=== PATIENT | male | born 1945 | race Caucasian/White ===

== ENCOUNTER 2022-05-31 10:18 | Inpatient (IN) ==
[~2022-05-31 10:18] MED LIST: Acetaminophen IV 1,000 MG/100 ML BAG IVPB ONE; Famotidine 20 MG/2 ML VIAL IVP ONE; Povidone-Iodine 45 ML, Sodium Chloride IRRigation 1,000 ML IR ONE
[2022-05-31] MEDS ORDERED: Lidocaine HCL 4 ML Topical Solution (Laryng-O-Jet Kit Sterile Pak) TP ONE (10:29)
[2022-05-31] MEDS ORDERED: *HR* Rocuronium Bromide 50 MG/5 ML VIAL ONE (10:29)
[2022-05-31] MEDS ORDERED: Lidocaine -MPF 2% 5 ML VIAL ONE (10:29)
[2022-05-31] MEDS ORDERED: Ondansetron 4 MG/2 ML VIAL ONE (10:29)
[2022-05-31] MEDS ORDERED: *HR* Propofol 200 MG/20 ML VIAL IVP ONE ×2 (10:29→11:56)
[2022-05-31] MEDS ORDERED: CeFAZolin Syr 2,000MG/20 ML 2,000 MG/20 ML SYRINGE IVPB ONE (11:05)
[2022-05-31] MEDS ORDERED: Insulin Human Regular 10 UNIT in 0.9 % Sodium Chloride 10 ML IV ONE ×2 (11:06→20:24)
[2022-05-31] MEDS ORDERED: Ringers Solution, Lactated 1,000 ML IVC SCH (11:15)
[2022-05-31] MEDS ORDERED: *HR* FentaNYL (PF) 100 MCG/2 ML VIAL ONE (11:35)
[2022-05-31] MEDS ORDERED: Ropivacaine/PF 0.5% 30 ML VIAL ONE (11:36)
[2022-05-31] MEDS ORDERED: Vancomycin 1,000 MG VIAL ONE ×2 (11:58→14:01)
[2022-05-31] MEDS ORDERED: Tranexamic Acid 1,000 MG/10 ML VIAL ONE (12:51)
[2022-05-31] MEDS ORDERED: EPHEDrine 50 MG/ML VIAL ONE (13:24)
[2022-05-31] MEDS ORDERED: Sugammadex Sodium 200 MG/2 ML VIAL IV ONE (14:11)
[2022-05-31] MEDS ORDERED: Sennosides 8.6 MG TABLET PO PRN (14:13)
[2022-05-31] MEDS ORDERED: MOM Conc 10 ML UD.LIQ PO PRN (14:13)
[2022-05-31] MEDS ORDERED: Ondansetron 4 MG/2 ML VIAL IVP PRN (14:13)
[2022-05-31] MEDS: *HR* FentaNYL (PF) 100 MCG/2 ML VIAL IVP PRN ×4 (15:10→15:25)
[2022-05-31] MEDS: *HR* OxyCODONE Immed Rel 5 MG TABLET PO PRN (15:42)
[2022-05-31] MEDS ORDERED: Vancomycin 1,500 MG/265 ML IV.SOLN IVPB ONE (19:00)
[2022-05-31] MEDS ORDERED: CeFAZolin 2 GM/120 ML BAG IVPB SCH (22:00)
[2022-05-31] MEDS: Ketorolac 30 MG/ML VIAL IVP SCH (22:08)
[2022-05-31] MEDS: Acetaminophen 325 MG TABLET PO SCH (23:08)
[2022-05-31 23:28] LABS: Basophils % 0.1 %; Hematocrit 38.2 % (37.5-50.1); Hemoglobin 12.6 g/dL (12.9-16.9); Immature Granulocytes % 0.7 % (0-4); Lymphocytes # 0.7 K/mcL (0.6-4.6); Mean Corpuscular Hemoglobin 31.7 pg (28.0-33.3); Mean Platelet Volume 10.4 fL (9.4-12.4); Monocytes # 0.4 K/mcL (0.0-1.3); Monocytes % 3.9 %; Neutrophils # 8.6 K/mcL (1.6-8.9); Platelet Count 298 K/mcL (140-400); Red Blood Count 3.98 M/mcL (4.19-5.50); Red Cell Distribution Width 13.4 % (11.5-14.5); Segmented Neutrophils % 88.3 %; White Blood Count 9.7 K/mcL (4.3-11.1)
[2022-05-31 23:33] LABS: VBG HCO3 22 mEq/L (21-27); VBG PCO2 38 mmHg (41-51); VBG PH 7.37 pH Units (7.32-7.42); VBG PO2 113 mmHg (25-50)
[2022-05-31 23:58] LABS: Albumin 3.6 g/dL (3.5-5.7); Albumin/Globulin Ratio 0.9 (1.1-2.2); Bilirubin,Total 0.5 mg/dL (0.3-1.0); Calcium 9.2 mg/dL (8.6-10.3); Globulin 4.1 g/dL (2.4-3.5); Potassium 4.6 mEq/L (3.5-5.1); Total Protein 7.7 g/dL (6.4-8.9)
[2022-06-01] MEDS ORDERED: *HR* Dextrose 50 % in Water (Syg) 50 ML SYRINGE IVP PRN (00:18)
[2022-06-01] MEDS ORDERED: D5% in Water 1,000 ML IVC PRN (00:18)
[2022-06-01] MEDS ORDERED: Dextrose Gel 15 GM/37.5 ML TUBE PO PRN ×2 (00:18)
[2022-06-01] MEDS ORDERED: Vancomycin 1,500 MG/265 ML IV.SOLN IVPB ONE (01:00)
[2022-06-01] MEDS: CeFAZolin 2 GM/120 ML BAG IVPB SCH ×2 (01:00→10:44)
[2022-06-01] MEDS: Ringers Solution, Lactated 1,000 ML IVC SCH ×3 (01:10→16:22)
[2022-06-01] MEDS: Insulin LISPRO 300 UNITS/3 ML VIAL SUBQ SCH ×12 (01:46→23:10)
[2022-06-01] MEDS ORDERED: Pantoprazole 40 MG VIAL IVP ONE (01:55)
[2022-06-01] MEDS: Insulin DETEMIR 100 UNIT/ML X5UNITS SUBQ SCH ×2 (03:07→21:23)
[2022-06-01] MEDS: *HR* OxyCODONE Immed Rel 5 MG TABLET PO PRN ×3 (04:30→21:03)
[2022-06-01] MEDS: Acetaminophen 325 MG TABLET PO SCH ×4 (04:35→18:33)
[2022-06-01] MEDS: Ketorolac 30 MG/ML VIAL IVP SCH ×4 (07:43→18:33)
[2022-06-01] MEDS: Aspirin Enteric Coated 81 MG Tablet PO SCH (10:43)
[2022-06-01] MEDS: *HR* Rivaroxaban 10 MG TABLET PO SCH (10:43)
[2022-06-01] MEDS: Gabapentin 100 MG CAPSULE PO SCH ×3 (10:43→21:03)
[2022-06-01 12:35] LABS: BUN/Creatinine Ratio 25 (6-26); Blood Urea Nitrogen 20 mg/dL (8-23); Calcium 8.4 mg/dL (8.6-10.3); Carbon Dioxide 23 mEq/L (23-29); Chloride 98 mEq/L (98-107); Glucose 330 mg/dL (70-105); Osmolality,Calculated 289 (280-300); Potassium 4.2 mEq/L (3.5-5.1); Sodium 132 mEq/L (136-145)
[2022-06-01] MEDS: cefTRIAXone 2,000 MG in 0.9 % Sodium Chloride Mini Bag 100 ML IVPB SCH (12:56)
[2022-06-01] MEDS ORDERED: Insulin LISPRO 300 UNITS/3 ML VIAL SUBQ ONE (16:02)
[2022-06-02] MEDS: Ketorolac 30 MG/ML VIAL IVP SCH ×4 (01:22→17:03)
[2022-06-02] MEDS: Acetaminophen 325 MG TABLET PO SCH ×4 (01:23→17:02)
[2022-06-02] MEDS: Insulin LISPRO 300 UNITS/3 ML VIAL SUBQ SCH ×7 (01:29→22:45)
[2022-06-02] MEDS: 0.9 % Sodium Chloride 1,000 ML IVC SCH (06:19)
[2022-06-02] MEDS: Gabapentin 100 MG CAPSULE PO SCH ×3 (08:38→22:58)
[2022-06-02] MEDS: *HR* OxyCODONE Immed Rel 5 MG TABLET PO PRN ×2 (08:38→17:02)
[2022-06-02] MEDS: Aspirin Enteric Coated 81 MG Tablet PO SCH (08:38)
[2022-06-02] MEDS: *HR* Rivaroxaban 10 MG TABLET PO SCH (08:38)
[2022-06-02] MEDS: cefTRIAXone 2,000 MG in 0.9 % Sodium Chloride Mini Bag 100 ML IVPB SCH (08:40)
[2022-06-02 09:53] LABS: Basophils % 0.5 %; Eosinophils # 0.1 K/mcL (0.0-0.6); Eosinophils % 2.1 %; Hematocrit 31.5 % (37.5-50.1); Hemoglobin 10.4 g/dL (12.9-16.9); Immature Granulocytes % 0.6 % (0-4); Lymphocytes # 2.4 K/mcL (0.6-4.6); Lymphocytes % 36.2 %; Mean Corpuscular Hemoglobin 31.5 pg (28.0-33.3); Mean Corpuscular Volume 95.5 fL (83.0-100.0); Mean Platelet Volume 10.5 fL (9.4-12.4); Monocytes # 0.6 K/mcL (0.0-1.3); Monocytes % 9.2 %; Neutrophils # 3.4 K/mcL (1.6-8.9); Platelet Count 273 K/mcL (140-400); Red Cell Distribution Width 13.4 % (11.5-14.5); Segmented Neutrophils % 51.4 %; White Blood Count 6.6 K/mcL (4.3-11.1)
[2022-06-02 10:11] LABS: Calcium 8.8 mg/dL (8.6-10.3); Potassium 3.6 mEq/L (3.5-5.1)
[2022-06-02] MEDS ORDERED: Vancomycin 1,500 MG/265 ML IV.SOLN IVPB SCH (16:00)
[2022-06-02] MEDS: Metoprolol XL (24 HR) Succ 50 MG TAB.ER.24H PO SCH (17:02)
[2022-06-02] MEDS ORDERED: Insulin DETEMIR 100 UNIT/ML X5UNITS SUBQ SCH (21:00)
[2022-06-02] MEDS: Vancomycin 1,500 MG/265 ML IV.SOLN IVPB SCH (22:43)
[2022-06-02] MEDS: Cholecalciferol (D-3) 1,000 UNIT (25MCG) TABLET PO SCH (22:58)
[2022-06-03] MEDS: Ketorolac 30 MG/ML VIAL IVP SCH ×5 (00:03→23:18)
[2022-06-03] MEDS: Acetaminophen 325 MG TABLET PO SCH ×5 (00:03→23:19)
[2022-06-03] MEDS ORDERED: Famotidine 20 MG TABLET PO ONE (01:14)
[2022-06-03] MEDS: Vancomycin 1,500 MG/265 ML IV.SOLN IVPB SCH (06:27)
[2022-06-03 07:00] LABS: Basophils % 0.5 %; Eosinophils # 0.2 K/mcL (0.0-0.6); Eosinophils % 3.8 %; Hematocrit 28.7 % (37.5-50.1); Hemoglobin 9.2 g/dL (12.9-16.9); Immature Granulocytes % 0.5 % (0-4); Lymphocytes # 1.7 K/mcL (0.6-4.6); Lymphocytes % 39.4 %; Mean Corpuscular HGB Conc 32.1 g/dL (31.6-35.5); Mean Corpuscular Hemoglobin 31.3 pg (28.0-33.3); Mean Corpuscular Volume 97.6 fL (83.0-100.0); Mean Platelet Volume 10.7 fL (9.4-12.4); Monocytes # 0.4 K/mcL (0.0-1.3); Monocytes % 9.7 %; Platelet Count 260 K/mcL (140-400); Red Blood Count 2.94 M/mcL (4.19-5.50); Red Cell Distribution Width 13.5 % (11.5-14.5); Segmented Neutrophils % 46.1 %; White Blood Count 4.4 K/mcL (4.3-11.1)
[2022-06-03 07:54] LABS: Calcium 8.4 mg/dL (8.6-10.3); Potassium 3.8 mEq/L (3.5-5.1)
[2022-06-03] MEDS: cefTRIAXone 2,000 MG in 0.9 % Sodium Chloride Mini Bag 100 ML IVPB SCH (08:21)
[2022-06-03] MEDS: Insulin LISPRO 300 UNITS/3 ML VIAL SUBQ SCH ×3 (08:21→17:27)
[2022-06-03] MEDS: *HR* Rivaroxaban 10 MG TABLET PO SCH (08:23)
[2022-06-03] MEDS: Aspirin Enteric Coated 81 MG Tablet PO SCH (08:24)
[2022-06-03] MEDS: Cholecalciferol (D-3) 1,000 UNIT (25MCG) TABLET PO SCH ×2 (08:24→20:12)
[2022-06-03] MEDS: Finasteride 5 MG TABLET PO SCH (08:24)
[2022-06-03] MEDS: Gabapentin 100 MG CAPSULE PO SCH ×3 (08:24→20:12)
[2022-06-03] MEDS: Fenofibrate 54 MG TABLET PO SCH (08:25)
[2022-06-03] MEDS: DilTIAZem CD (24hr) 240 MG CAP.ER.24H PO SCH (08:31)
[2022-06-03] MEDS: Metoprolol XL (24 HR) Succ 50 MG TAB.ER.24H PO SCH (08:31)
[2022-06-03] MEDS: Ringers Solution, Lactated 1,000 ML IVC SCH (08:35)
[2022-06-03] MEDS: Insulin DETEMIR 100 UNIT/ML X5UNITS SUBQ SCH ×2 (11:05→21:41)
[2022-06-03] MEDS: 0.9 % Sodium Chloride 1,000 ML IVC SCH (23:20)
[2022-06-04] MEDS ORDERED: Vancomycin 1,500 MG/265 ML IV.SOLN IVPB SCH (06:00)
[2022-06-04] MEDS: Ketorolac 30 MG/ML VIAL IVP SCH ×3 (06:00→16:49)
[2022-06-04] MEDS: Acetaminophen 325 MG TABLET PO SCH ×3 (06:00→16:49)
[2022-06-04] MEDS: *HR* Rivaroxaban 10 MG TABLET PO SCH (08:52)
[2022-06-04] MEDS: Metoprolol XL (24 HR) Succ 50 MG TAB.ER.24H PO SCH (08:52)
[2022-06-04] MEDS: cefTRIAXone 2,000 MG in 0.9 % Sodium Chloride Mini Bag 100 ML IVPB SCH (08:52)
[2022-06-04] MEDS: DilTIAZem CD (24hr) 240 MG CAP.ER.24H PO SCH (08:52)
[2022-06-04] MEDS: Fenofibrate 54 MG TABLET PO SCH (08:52)
[2022-06-04] MEDS: Finasteride 5 MG TABLET PO SCH (08:52)
[2022-06-04] MEDS: Gabapentin 100 MG CAPSULE PO SCH ×3 (08:52→22:03)
[2022-06-04] MEDS: Aspirin Enteric Coated 81 MG Tablet PO SCH (08:52)
[2022-06-04] MEDS: Cholecalciferol (D-3) 1,000 UNIT (25MCG) TABLET PO SCH ×2 (08:52→22:03)
[2022-06-04] MEDS: Insulin LISPRO 300 UNITS/3 ML VIAL SUBQ SCH ×4 (08:54→22:03)
[2022-06-04] MEDS: Insulin DETEMIR 100 UNIT/ML X5UNITS SUBQ SCH ×2 (09:06→22:03)
[2022-06-04 10:09] LABS: Basophils % 0.8 %; Eosinophils # 0.1 K/mcL (0.0-0.6); Eosinophils % 3.5 %; Hematocrit 30.8 % (37.5-50.1); Hemoglobin 10.1 g/dL (12.9-16.9); Lymphocytes # 1.7 K/mcL (0.6-4.6); Lymphocytes % 41.9 %; Mean Corpuscular HGB Conc 32.8 g/dL (31.6-35.5); Mean Corpuscular Hemoglobin 31.5 pg (28.0-33.3); Mean Platelet Volume 10.1 fL (9.4-12.4); Monocytes # 0.3 K/mcL (0.0-1.3); Monocytes % 7.3 %; Neutrophils # 1.8 K/mcL (1.6-8.9); Platelet Count 262 K/mcL (140-400); Red Blood Count 3.21 M/mcL (4.19-5.50); Red Cell Distribution Width 13.2 % (11.5-14.5); Segmented Neutrophils % 45.5 %
[2022-06-04 10:29] LABS: Calcium 8.5 mg/dL (8.6-10.3); Potassium 3.8 mEq/L (3.5-5.1)
[2022-06-04] MEDS: 0.9 % Sodium Chloride 1,000 ML IVC SCH (11:58)
[2022-06-05] MEDS: Acetaminophen 325 MG TABLET PO SCH ×5 (00:22→23:46)
[2022-06-05] MEDS: Ketorolac 30 MG/ML VIAL IVP SCH ×4 (00:22→17:48)
[2022-06-05 05:27] LABS: Basophils % 0.4 %; Eosinophils # 0.2 K/mcL (0.0-0.6); Eosinophils % 3.9 %; Hemoglobin 10.6 g/dL (12.9-16.9); Immature Granulocytes % 0.4 % (0-4); Lymphocytes # 1.6 K/mcL (0.6-4.6); Lymphocytes % 35.2 %; Mean Corpuscular HGB Conc 33.1 g/dL (31.6-35.5); Mean Corpuscular Hemoglobin 31.7 pg (28.0-33.3); Mean Corpuscular Volume 95.8 fL (83.0-100.0); Mean Platelet Volume 10.1 fL (9.4-12.4); Monocytes # 0.4 K/mcL (0.0-1.3); Monocytes % 9.5 %; Neutrophils # 2.3 K/mcL (1.6-8.9); Platelet Count 289 K/mcL (140-400); Red Blood Count 3.34 M/mcL (4.19-5.50); Red Cell Distribution Width 13.2 % (11.5-14.5); Segmented Neutrophils % 50.6 %; White Blood Count 4.6 K/mcL (4.3-11.1)
[2022-06-05 05:44] LABS: BUN/Creatinine Ratio 22 (6-26); Blood Urea Nitrogen 18 mg/dL (8-23); Calcium 9.1 mg/dL (8.6-10.3); Carbon Dioxide 28 mEq/L (23-29); Chloride 105 mEq/L (98-107); Glucose 181 mg/dL (70-105); Osmolality,Calculated 292 (280-300); Potassium 3.8 mEq/L (3.5-5.1); Sodium 138 mEq/L (136-145)
[2022-06-05] MEDS: Fenofibrate 54 MG TABLET PO SCH (07:34)
[2022-06-05] MEDS: *HR* Rivaroxaban 10 MG TABLET PO SCH (07:34)
[2022-06-05] MEDS: Metoprolol XL (24 HR) Succ 50 MG TAB.ER.24H PO SCH (07:34)
[2022-06-05] MEDS: Gabapentin 100 MG CAPSULE PO SCH ×3 (07:34→19:44)
[2022-06-05] MEDS: Cholecalciferol (D-3) 1,000 UNIT (25MCG) TABLET PO SCH ×2 (07:35→19:44)
[2022-06-05] MEDS: Aspirin Enteric Coated 81 MG Tablet PO SCH (07:35)
[2022-06-05] MEDS: Finasteride 5 MG TABLET PO SCH (07:35)
[2022-06-05] MEDS: DilTIAZem CD (24hr) 240 MG CAP.ER.24H PO SCH (07:35)
[2022-06-05] MEDS: Insulin LISPRO 300 UNITS/3 ML VIAL SUBQ SCH ×4 (08:03→19:44)
[2022-06-05] MEDS: Insulin DETEMIR 100 UNIT/ML X5UNITS SUBQ SCH ×2 (08:04→19:44)
[2022-06-06] MEDS: Acetaminophen 325 MG TABLET PO SCH ×3 (05:50→17:42)
[2022-06-06 06:11] LABS: Basophils % 0.6 %; Eosinophils # 0.2 K/mcL (0.0-0.6); Eosinophils % 3.9 %; Hematocrit 30.3 % (37.5-50.1); Hemoglobin 9.9 g/dL (12.9-16.9); Immature Granulocytes % 0.8 % (0-4); Lymphocytes # 1.9 K/mcL (0.6-4.6); Lymphocytes % 37.8 %; Mean Corpuscular HGB Conc 32.7 g/dL (31.6-35.5); Mean Corpuscular Hemoglobin 31.4 pg (28.0-33.3); Mean Corpuscular Volume 96.2 fL (83.0-100.0); Mean Platelet Volume 10.1 fL (9.4-12.4); Monocytes # 0.5 K/mcL (0.0-1.3); Monocytes % 10.6 %; Neutrophils # 2.3 K/mcL (1.6-8.9); Platelet Count 271 K/mcL (140-400); Red Blood Count 3.15 M/mcL (4.19-5.50); Red Cell Distribution Width 13.5 % (11.5-14.5); Segmented Neutrophils % 46.3 %; White Blood Count 4.9 K/mcL (4.3-11.1)
[2022-06-06 06:28] LABS: BUN/Creatinine Ratio 31 (6-26); Blood Urea Nitrogen 24 mg/dL (8-23); Carbon Dioxide 27 mEq/L (23-29); Chloride 106 mEq/L (98-107); Glucose 168 mg/dL (70-105); Osmolality,Calculated 296 (280-300); Potassium 3.6 mEq/L (3.5-5.1); Sodium 139 mEq/L (136-145)
[2022-06-06] MEDS: Metoprolol XL (24 HR) Succ 50 MG TAB.ER.24H PO SCH (09:17)
[2022-06-06] MEDS: Fenofibrate 54 MG TABLET PO SCH (09:17)
[2022-06-06] MEDS: *HR* Rivaroxaban 10 MG TABLET PO SCH (09:17)
[2022-06-06] MEDS: Finasteride 5 MG TABLET PO SCH (09:17)
[2022-06-06] MEDS: DilTIAZem CD (24hr) 240 MG CAP.ER.24H PO SCH (09:17)
[2022-06-06] MEDS: Gabapentin 100 MG CAPSULE PO SCH ×3 (09:17→19:59)
[2022-06-06] MEDS: Aspirin Enteric Coated 81 MG Tablet PO SCH (09:17)
[2022-06-06] MEDS: Cholecalciferol (D-3) 1,000 UNIT (25MCG) TABLET PO SCH ×2 (09:17→19:59)
[2022-06-06] MEDS: Insulin DETEMIR 100 UNIT/ML X5UNITS SUBQ SCH ×2 (09:20→23:58)
[2022-06-06] MEDS: Insulin LISPRO 300 UNITS/3 ML VIAL SUBQ SCH ×4 (09:20→23:58)
[2022-06-06] MEDS: *HR* OxyCODONE Immed Rel 5 MG TABLET PO PRN ×2 (09:28→15:46)
[2022-06-06] MEDS: Vancomycin 1,250 MG/262.5 ML IV.SOLN IVPB SCH (19:59)
[2022-06-07] MEDS: Acetaminophen 325 MG TABLET PO SCH ×5 (01:04→23:43)
[2022-06-07 04:14] LABS: Basophils % 0.8 %; Eosinophils # 0.2 K/mcL (0.0-0.6); Eosinophils % 3.4 %; Hematocrit 29.8 % (37.5-50.1); Hemoglobin 9.8 g/dL (12.9-16.9); Immature Granulocytes % 0.8 % (0-4); Lymphocytes # 1.8 K/mcL (0.6-4.6); Lymphocytes % 34.5 %; Mean Corpuscular HGB Conc 32.9 g/dL (31.6-35.5); Mean Corpuscular Hemoglobin 32.3 pg (28.0-33.3); Mean Corpuscular Volume 98.3 fL (83.0-100.0); Mean Platelet Volume 9.9 fL (9.4-12.4); Monocytes # 0.6 K/mcL (0.0-1.3); Monocytes % 11.8 %; Neutrophils # 2.6 K/mcL (1.6-8.9); Platelet Count 264 K/mcL (140-400); Red Blood Count 3.03 M/mcL (4.19-5.50); Red Cell Distribution Width 13.7 % (11.5-14.5); Segmented Neutrophils % 48.7 %; White Blood Count 5.3 K/mcL (4.3-11.1)
[2022-06-07 04:32] LABS: BUN/Creatinine Ratio 27 (6-26); Blood Urea Nitrogen 21 mg/dL (8-23); Calcium 8.9 mg/dL (8.6-10.3); Carbon Dioxide 28 mEq/L (23-29); Chloride 105 mEq/L (98-107); Glucose 157 mg/dL (70-105); Osmolality,Calculated 292 (280-300); Potassium 3.7 mEq/L (3.5-5.1); Sodium 138 mEq/L (136-145)
[2022-06-07] MEDS: Fenofibrate 54 MG TABLET PO SCH (08:39)
[2022-06-07] MEDS: Cholecalciferol (D-3) 1,000 UNIT (25MCG) TABLET PO SCH ×2 (08:39→20:47)
[2022-06-07] MEDS: Gabapentin 100 MG CAPSULE PO SCH ×3 (08:40→20:47)
[2022-06-07] MEDS: Metoprolol XL (24 HR) Succ 50 MG TAB.ER.24H PO SCH (08:40)
[2022-06-07] MEDS: *HR* Rivaroxaban 10 MG TABLET PO SCH (08:40)
[2022-06-07] MEDS: Finasteride 5 MG TABLET PO SCH (08:40)
[2022-06-07] MEDS: Aspirin Enteric Coated 81 MG Tablet PO SCH (08:40)
[2022-06-07] MEDS: DilTIAZem CD (24hr) 240 MG CAP.ER.24H PO SCH (08:41)
[2022-06-07] MEDS: Insulin LISPRO 300 UNITS/3 ML VIAL SUBQ SCH ×4 (08:54→20:48)
[2022-06-07] MEDS ORDERED: Insulin DETEMIR 100 UNIT/ML X5UNITS SUBQ SCH ×2 (09:00→21:00)
[2022-06-07] MEDS: Vancomycin 1,250 MG/262.5 ML IV.SOLN IVPB SCH (10:47)
[2022-06-07] MEDS ORDERED: Vancomycin 1,250 MG/262.5 ML IV.SOLN IVPB SCH (21:00)
[2022-06-07 23:54] VITALS: BP 147/69; PULSE 81; TEMP 97.8; O2SAT 95
[2022-06-08] MEDS: Acetaminophen 325 MG TABLET PO SCH ×2 (06:53→11:53)
[2022-06-08 07:05] LABS: Basophils % 0.6 %; Eosinophils # 0.2 K/mcL (0.0-0.6); Hematocrit 30.4 % (37.5-50.1); Hemoglobin 10.1 g/dL (12.9-16.9); Immature Granulocytes % 0.4 % (0-4); Lymphocytes # 1.7 K/mcL (0.6-4.6); Mean Corpuscular HGB Conc 33.2 g/dL (31.6-35.5); Mean Corpuscular Hemoglobin 32.4 pg (28.0-33.3); Mean Corpuscular Volume 97.4 fL (83.0-100.0); Mean Platelet Volume 10.1 fL (9.4-12.4); Monocytes # 0.5 K/mcL (0.0-1.3); Monocytes % 10.4 %; Neutrophils # 2.5 K/mcL (1.6-8.9); Platelet Count 263 K/mcL (140-400); Red Blood Count 3.12 M/mcL (4.19-5.50); Red Cell Distribution Width 13.4 % (11.5-14.5); Segmented Neutrophils % 50.6 %
[2022-06-08] MEDS: Gabapentin 100 MG CAPSULE PO SCH ×2 (08:52→15:18)
[2022-06-08] MEDS: Cholecalciferol (D-3) 1,000 UNIT (25MCG) TABLET PO SCH (08:52)
[2022-06-08] MEDS: Fenofibrate 54 MG TABLET PO SCH (08:52)
[2022-06-08] MEDS: Finasteride 5 MG TABLET PO SCH (08:52)
[2022-06-08] MEDS: Metoprolol XL (24 HR) Succ 50 MG TAB.ER.24H PO SCH (08:52)
[2022-06-08] MEDS: Insulin LISPRO 300 UNITS/3 ML VIAL SUBQ SCH ×2 (08:53→11:51)
[2022-06-08] MEDS: DilTIAZem CD (24hr) 240 MG CAP.ER.24H PO SCH (08:53)
[2022-06-08] MEDS: *HR* Rivaroxaban 10 MG TABLET PO SCH (08:53)
[2022-06-08] MEDS: Aspirin Enteric Coated 81 MG Tablet PO SCH (08:53)
[2022-06-08] MEDS ORDERED: Insulin DETEMIR 100 UNIT/ML X5UNITS SUBQ SCH ×2 (09:00)
[2022-06-08 09:32] LABS: BUN/Creatinine Ratio 19 (6-26); Blood Urea Nitrogen 14 mg/dL (8-23); Calcium 9.5 mg/dL (8.6-10.3); Carbon Dioxide 28 mEq/L (23-29); Chloride 105 mEq/L (98-107); Glucose 199 mg/dL (70-105); Osmolality,Calculated 294 (280-300); Potassium 3.9 mEq/L (3.5-5.1); Sodium 139 mEq/L (136-145)
[2022-06-08] MEDS ORDERED: Vancomycin 1,500 MG/265 ML IV.SOLN IVPB SCH (11:00)
== END 2022-06-08 17:57 | disposition home health service (06) | DRG 496 ==
LOC: SDCAOSI 10:18 → 4WAOSI 14:13 → SUATTDRO 14:13 → 4WAOSI 06-01 00:16
PROVIDERS: ADMIT Orthopaedic Surgery; ATTEND General Practice